=== PATIENT | female | born 1940 | race Caucasian/White ===

== ENCOUNTER 2018-12-20 10:39 | Emergency (ER) | payer MEDICARE, OTHER ==
[~2018-12-20] VITALS: Ht 165.1 cm; Wt 158.8 kg
[~2018-12-20 10:39] MED LIST: Augmentin 875-1 EACH PO; CLIN150 PO; METPRE4DP PO; SERT50 PO
[2018-12-20] MEDS ORDERED: XARELTO20 MG PO (11:04)
[2018-12-20 12:23] LABS: Source, Urine Voided
[2018-12-20 12:26] LABS: Bilirubin, Urine Neg (Neg); Blood, Urine Neg (Neg); Glucose Qualitative, Urine Neg (Neg); Ketones, Urine Neg (Neg); Leukocyte Esterase, Urine Neg (Neg); Nitrite, Urine Neg (Neg); Protein, Urine Neg (Neg); Urobilinogen, Urine NORM (Normal)
[2018-12-20 12:33] LABS: Appearance, Urine Clear (Clear); Color, Urine Yellow (P-Yellow)
[2018-12-20 12:47] LABS: BASOPHILS ABSOLUTE AUTO 0.03 K/mm3 (0.00-0.23); BASOPHILS PERCENT AUTO 0 % (0-2); EOSINOPHILS ABSOLUTE AUTO 0.06 K/mm3 (0.00-0.68); EOSINOPHILS PERCENT AUTO 1 % (0-6); Hematocrit 48.1 % (33.0-51.0); Hemoglobin 15.6 g/dL (11.5-16.0); IMMATURE GRAN ABSOLUTE AUTO 0.02 K/mm3 (0.00-0.10); IMMATURE GRAN PERCENT AUTO 0 % (0-1); LYMPHOCYTES ABSOLUTE AUTO 2.24 K/mm3 (0.84-5.20); LYMPHOCYTES PERCENT AUTO 27 % (21-46); MONOCYTES ABSOLUTE AUTO 0.63 K/mm3 (0.16-1.47); MONOCYTES PERCENT AUTO 8 % (4-13); Mean Corpuscular HGB 30.6 pg (26.0-34.0); Mean Corpuscular HGB Conc 32.4 g/dL (31.5-36.5); Mean Corpuscular Volume 95 fL (80-100); Mean Platelet Volume 10.5 fL (9.1-12.4); NEUTROPHILS PERCENT AUTO 64 % (41-73); Platelet Count 180 K/mm3 (150-400); RDW Coefficient Variation 12.7 % (11.7-14.2); RDW Standard Deviation 44.5 fL (35.1-46.3); Red Blood Cell Count 5.09 M/mm3 (3.80-5.20); White Blood Cell Count 8.18 K/mm3 (4.00-11.30)
[2018-12-20 12:56] LABS: Alanine Aminotransfer (ALT/SGP 22 U/L (12-78); Albumin, Blood 3.7 g/dL (3.4-5.0); Albumin/Globulin Ratio 0.9 (0.8-1.8); Alk Phos 84 U/L (50-136); Anion Gap 5 mmol/L (6-16); Aspartate Aminotrans (AST/SGOT 23 U/L (12-37); Bilirubin, Total 0.5 mg/dL (0.1-1.0); Blood Urea Nitrogen 11 mg/dL (8-24); Bun/Creatinine Ratio 16.8 (12.0-20.0); CO2, Blood 30 mmol/L (21-32); Calcium, Blood 9.2 mg/dL (8.5-10.1); Chloride, Blood 106 mmol/L (98-108); Creatinine, Blood 0.66 mg/dL (0.40-1.00); Globulin, Blood 3.9 g/dL (2.2-4.0); Glomerular Filtration Rate >60 (60-); Glucose, Blood 102 mg/dL (70-99); Potassium, Blood 4.1 mmol/L (3.5-5.5); Sodium, Blood 141 mmol/L (136-145); Total Protein, Blood 7.6 g/dL (6.4-8.2); Troponin I <0.015 ng/mL (0.000-0.040)
[2018-12-20] MEDS ORDERED: Hydrochloroth12.5 MG PO (15:05)
== END 2018-12-20 15:19 | disposition home or self-care (01) ==
LOC: ER 10:39
PROVIDERS: Emergency Medicine
DX: I10 Essential (primary) hypertension (principal); I48.91 Unspecified atrial fibrillation; Z87.891 Personal history of nicotine dependence; Z88.5 Allergy status to narcotic agent
CPT/HCPCS: 36415; 71046; 80053; 81003; 83880; 84443; 84484; 85025; 93005; 93010; 93306; 96361; 96374; 96375; 99284-25; J0360; J2060; J7030

== ENCOUNTER → 2020-05-21 | Outpatient (CLI) | payer MEDICARE, OTHER ==
[~2020-05-21] MED LIST changes: +ASPI81CH PO; +DICLOFENAC SOD100 G1 TOP; +FUROSEMIDE20 MG PO; +HYDROCODONE-AC1 EAC8 PO; +Hydrochloroth12.5 MG PO; +METOPROLOL SUCC25 MG PO; +MULTI-VITAMIN1 EAC2 PO; +ONDA4ODT MM; +Potassium Chlo20 ME1 PO; +XARELTO20 MG PO
== END ==
LOC: LAB 13:45 → LAB SHORT 13:45
DX: R30.0 Dysuria (principal); R31.0 Gross hematuria
CPT/HCPCS: 87086

== ENCOUNTER → 2021-04-02 | Outpatient (CLI) | payer MEDICARE, OTHER | END | disposition home or self-care (01) | LOC: LAB SHORT 16:47 → LAB 16:47 | DX: N30.00 Acute cystitis without hematuria (principal) | CPT/HCPCS: 87086 ==

== ENCOUNTER → 2021-04-08 | Outpatient (CLI) | payer MEDICARE, OTHER | END | disposition home or self-care (01) | LOC: LAB SHORT 11:00 | DX: R30.0 Dysuria (principal) | CPT/HCPCS: 87086 ==

== ENCOUNTER 2022-04-01 10:28 | Inpatient (IN) | payer MEDICARE, OTHER ==
[~2022-04-01] VITALS: Ht 165.1 cm; Wt 154.9 kg
[~2022-04-01 10:28] MED LIST changes: +FURO40 PO; -FUROSEMIDE20 MG PO
[2022-04-01 11:14] LABS: BASOPHILS ABSOLUTE AUTO 0.01 K/mm3 (0.00-0.23); BASOPHILS PERCENT AUTO 0 % (0-2); EOSINOPHILS ABSOLUTE AUTO 0.01 K/mm3 (0.00-0.68); EOSINOPHILS PERCENT AUTO 0 % (0-6); Hematocrit 43.2 % (33.0-51.0); IMMATURE GRAN ABSOLUTE AUTO 0.02 K/mm3 (0.00-0.10); IMMATURE GRAN PERCENT AUTO 0 % (0-1); LYMPHOCYTES ABSOLUTE AUTO 1.74 K/mm3 (0.84-5.20); LYMPHOCYTES PERCENT AUTO 25 % (21-46); MONOCYTES ABSOLUTE AUTO 1.19 K/mm3 (0.16-1.47); MONOCYTES PERCENT AUTO 17 % (4-13); Mean Corpuscular HGB 28.9 pg (26.0-34.0); Mean Corpuscular HGB Conc 32.4 g/dL (31.5-36.5); Mean Corpuscular Volume 89 fL (80-100); Mean Platelet Volume 9.4 fL (9.1-12.4); NEUTROPHILS ABSOLUTE AUTO 4.06 K/mm3 (1.96-9.15); NEUTROPHILS PERCENT AUTO 58 % (41-73); Platelet Count 171 K/mm3 (150-400); RDW Coefficient Variation 14.9 % (11.7-14.2); RDW Standard Deviation 49.5 fL (35.1-46.3); Red Blood Cell Count 4.84 M/mm3 (3.80-5.20); White Blood Cell Count 7.03 K/mm3 (4.00-11.30)
[2022-04-01 11:33] LABS: Albumin, Blood 2.8 g/dL (3.4-5.0); Albumin/Globulin Ratio 0.7 (0.8-1.8); Bilirubin, Total 0.6 mg/dL (0.1-1.0); Bun/Creatinine Ratio 20.2 (12.0-20.0); Calcium, Blood 8.6 mg/dL (8.5-10.1); Creatinine, Blood 0.69 mg/dL (0.40-1.00); Globulin, Blood 4.2 g/dL (2.2-4.0); Potassium, Blood 3.9 mmol/L (3.5-5.5)
[2022-04-01 12:21] LABS: Influenza B, PCR NEGATIVE (NEGATIVE); Resp Syncytial Virus, PCR NEGATIVE (NEGATIVE); SARS-Cov-2 (COVID-19) PCR, MMC NEGATIVE (NEGATIVE)
[2022-04-01 12:23] LABS: Influenza A, PCR POSITIVE (NEGATIVE)
[2022-04-02 05:57] LABS: PO2 Arterial 78.5 mmHg (80-100)
[2022-04-02 05:58] LABS: PCO2 Arterial 90.9 mmHg (35-45); pH Blood Arterial 7.21 (7.35-7.45)
[2022-04-02 06:11] LABS: Hematocrit 48.3 % (33.0-51.0); Hemoglobin 14.8 g/dL (11.5-16.0); Mean Corpuscular HGB Conc 30.6 g/dL (31.5-36.5); Mean Platelet Volume 9.7 fL (9.1-12.4); Platelet Count 165 K/mm3 (150-400); RDW Coefficient Variation 15.1 % (11.7-14.2); RDW Standard Deviation 53.1 fL (35.1-46.3); White Blood Cell Count 6.66 K/mm3 (4.00-11.30)
[2022-04-02 06:36] LABS: Calcium, Blood 9.2 mg/dL (8.5-10.1); Creatinine, Blood 0.67 mg/dL (0.40-1.00); Magnesium, Blood 2.5 mg/dL (1.6-2.4); Potassium, Blood 4.3 mmol/L (3.5-5.5)
--- NOTE | 2022-04-02 06:54 | NUR ---
FAMILY CALL RECEIVED CALL AT THE NURSE'S STATION FROM PT'S SON REGINALD. HE STATED THAT HE HAD MISSED A CALL BUT THERE WAS NO MESSAGE. PROVIDED UPDATE INCLUDING REASON FOR TRANSFER TO PCU AND PLAN OF TREATMENT AFTER RAPID RESPONSE WAS CALLED ON MEDICAL FLOOR. ANSWERED QUESTIONS AND EXPLAINED THAT CONDITION IS FRAGILE AT THIS TIME UNTIL RESPONSE TO TREATMENT IS KNOWN.
--- NOTE | 2022-04-02 07:03 | NUR ---
CALL FROM SPOUSE RECEIVED ADDITIONAL CALL AT NURSES' STATION WITH REQUEST FOR UPDATE. PT'S (VICKY) HAD MISSED A CALL. REQUESTED THAT HE BE CALLED ON HIS CELL PHONE FOR FUTURE UPDATES AT [phone]. PROVIDED UPDATE AND ANSWERED QUESTIONS R/T TREATMENT PLAN AND CONDITION.
[2022-04-02 07:12] LABS: Mean Corpuscular Volume 95 fL (80-100)
--- NOTE | 2022-04-02 07:32 | NUR ---
PATIENT TRANSFERED FROM MEDICAL UNIT TO PCU 15 FOLLOWING RAPID RESPONSE CALLED DUE TO ALTERED MENTAL STATUS. SHE ARRIVED TO THE ROOM AT APPROXIMATELY 05:55 THIS MORNING. RT SET UP BIPAP EMERGENTLY AND PATIENT WAS SETTLED. HEART RATE RANGES FROM HIGH 40S TO 80S AND RHYTHM IS ATRIAL FIBRILLATION, WHICH IS CHRONIC FOR THIS PATIENT. [facility] CARE PROVIDED PRIOR TO PLACEMENT OF PUREWICK DUE TO PATIENT RESPIRATORY STATUS AND ADMINISTRATION OF IV LASIX. SKIN BREAKDOWN SEEN AROUND PERINEUM, UNDER PANNUS AND IN BILAT GROIN. PATIENT WILL NEED MICONAZOLE POWDER, ADVISED ONCOMING RN OF THIS IN RN TO RN REPORT. PATIENT ORIENTED TO SELF AND PLACE AND THAT SHE IS IN THE HOSPITAL DUE TO WEAKNESS AND "LOW OXYGEN." BIPAP IS IN PLACE. 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 LIMB RESTRICTION NOTICE DISPLAYED. VENIPUNCTURE WAS DIFFICULT PER PHLEBLOTOMIST. PASSED ON TO WHEELAGE CLERK THAT PATIENT WOULD BENEFIT FROM A POWERGLIDE IF POSSIBLE. IV LASIX AND ORDERED ANTIBIOTICS ADMINISTERED. PATIENT IS RESTING COMFORTABLY IN BED WITH BIPAP IN PLACE.
--- NOTE | 2022-04-02 08:39 | NUR ---
CALL TO PROVIDER THIS RN CALLS DR TAYLOR, GIVEN UPDATE ON FREQUENT 2-2.3 SECOND PAUSES AND PT HR INTO 40'S AT TIMES. ORDER TO CONTINUE TO MONITOR AND HOLD ORDERED METOPROLOL. NOTIFIED OF ABG BEING DRAWN PER RT PROTOCOL AT THIS TIME. CONTINUES ON BIPAP 18/8 50% O2. ORDER TO PERFORM CBG AT THIS TIME SINCE PT IS ON BIPAP AND LETHARGIC AND NOT TAKING IN PO.
[2022-04-02 08:53] LABS: PCO2 Arterial 80.3 mmHg (35-45); PO2 Arterial 76.9 mmHg (80-100); pH Blood Arterial 7.27 (7.35-7.45)
[2022-04-02 10:45] LABS: PCO2 Arterial 71.2 mmHg (35-45); PO2 Arterial 81.5 mmHg (80-100); pH Blood Arterial 7.32 (7.35-7.45)
[2022-04-02 12:01] LABS: Source, Urine Foley catheter
[2022-04-02 12:09] LABS: Bilirubin, Urine Neg (Neg); Blood, Urine Neg (Neg); Glucose Qualitative, Urine Neg (Neg); Ketones, Urine Neg (Neg); Leukocyte Esterase, Urine Neg (Neg); Nitrite, Urine Neg (Neg); Protein, Urine 1+ (Neg); Urobilinogen, Urine NORM (Normal)
[2022-04-02 12:18] LABS: Appearance, Urine Hazy (Clear); Color, Urine Yellow (P-Yellow)
[2022-04-02 12:19] LABS: Bacteria Few /hpf; Granular Casts 0-2 /lpf (0); Red Blood Cells, Urine 0-2 /hpf (0-2); Squamous Epithelial Cells Few /hpf (Few)
--- NOTE | 2022-04-02 14:56 | NUR ---
PROVIDER UPDATE DR TAYLOR CALLS FOR UPDATE ON PT, THIS RN UPDATES HER ON PT AOX4 WITH FAMILY AT BEDSIDE WHILE SITTING UP AND AWAKE ON BIPAP. UPDATED ON PT SATS OCCASIONALLY DROPPING WITH IRREGUAR BREATHING PATTERN BUT SATS NOT MAINTAINING LOW. PATEL RT AWARE. HR IMPROVED FROM THIS AM, NO SIGNIFICANT OCCURENCE OF PAUSES THIS AFTERNOON. NOTIFIED OF PLAN FOR REPEAT BLOOD GAS AT AROUND 1600.
[2022-04-02 16:56] LABS: Base Excess Venous 10.7 mmol/L; Bicarbonate Venous 31.8 mmol/L (24.0-30.0); PCO2 Venous 67.7 mmHg (38-42); pH Blood Venous 7.34 (7.34-7.37)
--- NOTE | 2022-04-02 20:17 | NUR ---
SHIFT SUMMARY PT AOX4 THIS EVENING WITH FAMILY AT BEDSIDE, MAINTAINS AFIB 50'S-60'S WITH RARE 2 SECOND PAUSES NOTED BY TELE. PT MASK SWITCHED OUT TO SMALL SIZE AND GEL IN PLACE D/T FREQUENT LEAKS AND SOME BREAKDOWN TO BRIDGE OF NOSE FROM BIPAP TIGHT TO FACE. LS DIMINISHED T/O WITH SOME WHEEZING SATS MAINTAINED 95-98% ON BIPAP AT 24/10 RR22 AND O2 40-50%. PT TURNED FREQUENTLY BY X2 STAFF, ASSISTS WITH TURNS, PILLOWS IN PLACE TO AID IN REPOSITIONING. ORAL CARE PERFORMED SEVERAL TIMES T/O SHIFT. PT TOLERATED WELL AND STATED IMPROVEMENT IN COMFORT FOLLOWING ORAL CARE THROUGH MASK. WATTERS DRAINING DARK YELLOW URINE. NO BM THIS SHIFT, PT HAS BEEN NPO D/T BIPAP. SWITCHED TO LOVENOX AND DC XARELTO AT THIS TIME PER DR TAYLOR ORDER D/T NPO.
[2022-04-03 04:29] LABS: PO2 Venous 45.7 mmHg (38-42)
[2022-04-03 04:30] LABS: Base Excess Venous 12.6 mmol/L; Bicarbonate Venous 33.7 mmol/L (24.0-30.0); PCO2 Venous 56.7 mmHg (38-42); pH Blood Venous 7.42 (7.34-7.37)
[2022-04-03 04:41] LABS: BASOPHILS ABSOLUTE AUTO 0.01 K/mm3 (0.00-0.23); BASOPHILS PERCENT AUTO 0 % (0-2); EOSINOPHILS PERCENT AUTO 0 % (0-6); Hematocrit 43.2 % (33.0-51.0); Hemoglobin 13.6 g/dL (11.5-16.0); IMMATURE GRAN ABSOLUTE AUTO 0.02 K/mm3 (0.00-0.10); IMMATURE GRAN PERCENT AUTO 1 % (0-1); LYMPHOCYTES ABSOLUTE AUTO 1.09 K/mm3 (0.84-5.20); LYMPHOCYTES PERCENT AUTO 29 % (21-46); MONOCYTES ABSOLUTE AUTO 0.22 K/mm3 (0.16-1.47); MONOCYTES PERCENT AUTO 6 % (4-13); Mean Corpuscular HGB 28.6 pg (26.0-34.0); Mean Corpuscular HGB Conc 31.5 g/dL (31.5-36.5); Mean Corpuscular Volume 91 fL (80-100); Mean Platelet Volume 10.2 fL (9.1-12.4); NEUTROPHILS ABSOLUTE AUTO 2.41 K/mm3 (1.96-9.15); NEUTROPHILS PERCENT AUTO 64 % (41-73); Platelet Count 185 K/mm3 (150-400); RDW Coefficient Variation 14.8 % (11.7-14.2); RDW Standard Deviation 49.5 fL (35.1-46.3); Red Blood Cell Count 4.76 M/mm3 (3.80-5.20); White Blood Cell Count 3.75 K/mm3 (4.00-11.30)
[2022-04-03 04:58] LABS: Bun/Creatinine Ratio 29.2 (12.0-20.0); Calcium, Blood 9.2 mg/dL (8.5-10.1); Creatinine, Blood 0.69 mg/dL (0.40-1.00); Potassium, Blood 4.2 mmol/L (3.5-5.5)
--- NOTE | 2022-04-03 07:19 | NUR ---
NO ACUTE EVENTS OVERNIGHT LAST NIGHT, PATIENT WAS ON BIPAP THROUGH MOST OF THE NIGHT UNTIL APPROXIMATELY 05:00 WHEN SHE WAS GIVEN A BREAK FROM THE BIPAP AND PERSONAL CARES WERE PROVIDED. IMPROVEMENTS NOTED IN VBG (SEE RESULTS IN EMR). PATIENT ALERT & ORIENTED, PARTICIPATING IN CARES, AND TALKATIVE WITH STAFF. PATIENT REPORTS FEELING BETTER BUT DOES NOT RECALL MUCH OF THE PREVIOUS DAY. PATIENT IS RESTING IN BED ON 3 LPM PER NASAL CANNULA, WITH SpO2 RANGING FROM 94 - 98%. NO COMPLAINTS OF SHORTNESS OF BREATH. NO LABORED BREATHING OBSERVED. WILL CONTINUE TO MONITOR
--- NOTE | 2022-04-03 17:53 | NUR ---
SHIFT SUMMARY; ASSUMED CARE AT 0700. A/A/OX4. 3L O2 VIA NC, TOLERATING WELL. BED BATH TODAY AND LINEN CHANGE. WATTERS IN PLACE DRAINING YELLOW URINE TO GRAVITY. YEAST CREAM PER EMAR ON SKIN FOLDS. BLE EDEMA 2+, VSS, FAMILY AT BEDSIDE DURING SHIFT. PT VISITS WITH FAMILY AND TALKS ON PHONE DURING SHIFT. NO APPARENT DISTRESS, WILL CONTINUE TO MONITOR AND TREAT UNTIL CHANGE OF SHIFT.
--- NOTE | 2022-04-04 05:04 | NUR ---
SHIFT SUMMARY PT A&Ox4, CALLS AND COMMUNICATES NEEDS APPROPRIATELY. VSS. BP STABLE, AFIB 60-100's WITH AWAKE, 40-50's WITH OCCATIONAL PAUSE OF APPROXIAMTELY 2sec WHILE ASLEEP. PT ASYMPTOMATIC, DENIES CP/PRESSURE/LIGHTHEADEDNESS. PT WORE BiPAP THROUGHOUT THE NIGHT WHILE ASLEEP AND 3L VIA NC WHILE AWAKE, SpO2> 92%, DENIES SOB. WATTERS CATHETER IN PLAC, PATENT AND DRAINING TO GRAVITY. PT HAS SLIGHT INDENT AND RED SHAQUILLE ON BRIDGE OF NOSE FROM BiPAP MASK, GEL GECKO PAD APPLIED. REDNESS AND INDENT LESSENED AFTER GEL GECKO PAD WAS PLACE AND CONTINUES TO IMPROVE NOW THAT PT IS AWAKE AND NOT WEARING BiPAP. NO ACUTE EVENTS THIS SHIFT, WILL REPORT TO ONCOMING RN.
--- NOTE | 2022-04-04 11:12 | NUR ---
Upon receiving a referral for spiritual care, I visit pt. Patient is lying in bed and resting, but easily awakens to the sound of her name. She immediately tells me about her medical complications, her Orthodoxy telly and her spouse, residing in the ER awaiting admittance for a hospital room. Pt shares about the stressors that are weighing on her and how her telly is the strength and inspiration that brings her through challenging situations. Her son Mitchell enters the room, I provide prayer and then allow them time to visit. Pt responds well to the therapeutic listening, recitation of scripture and prayer and shows signs of being encouraged in her telly. I will continue to remain available to patient and family.
--- NOTE | 2022-04-04 18:42 | NUR ---
END OF SHIFT: ASSUMPTION OF CARE WAS ROUGHLY AT 1300, PATIENT HAS BEEN STABLE DENIES CHEST PAIN OR PRESSURE, PT/OT HAS BEEN WORKED WITH PATIENT NEW ORDERS OF MIRALAX AND PT/OT EVAL. PATIENT TOLERATED WELL BUT HR DID GO TO THE 140'S WITH THE EXERTION OF PT. PATIENT ASYMPTOMATIC. PATIENT DENIES CHEST PAIN SOB, OR PRESSURE AHSB BEEN 2-3L VIA NC AND SPO2 >94% PATIENT ON AVAP SETTINGS AT HS. PATIENT HAS BEEN AWAKE ALL SHIFT. FAMILY AT BEDSIDE. NO SIGN OF CARDIAC OR RESPIRATORY DISTRESS AT THIS TIME WILL CONTINUE TO MONITOR UNTIL SHIFT CHANGE.
--- NOTE | 2022-04-05 04:28 | NUR ---
SHIFT SUMMARY PT A&Ox4, CALLS AND COMMUNICATES NEEDS APPROPRIATELY. VSS. BP STABLE, AFIB 60-100's WITH AWAKE, 50's WHILE ASLEEP. DENIES CP/PRESSURE/LIGHTHEADEDNESS. PT WITH NO EPISODES OF PAUSES THIS SHIFT. PT WORE BiPAP THROUGHOUT THE NIGHT WHILE ASLEEP AND 3L VIA NC WHILE AWAKE, SpO2> 92%, DENIES SOB. WATTERS CATHETER IN PLACE, PATENT AND DRAINING TO GRAVITY. PT REMAINED MEDICAL WITH TELE STATUS. NO ACUTE EVENTS THIS SHIFT, WILL REPORT TO ONCOMING RN.
--- NOTE | 2022-04-05 09:00 | NUR ---
INITIAL ASSESSMENT: Patient is alert and oriented, she is just walking back from the bathroom, the PCT helped her with a bed bath this AM. She denies pain aside from a sore throat-pt states is due to coughing. HR irreg, A-Fib in the 70s. LS DIM T/O, biox WNL on 2l VIA NC. BT+. PPP. VSS. Patient is sitting on the edge of the bed finishing breakfast, takes AM pills fine whole with water. Patient denies other needs at this time. Call light in reach.
[2022-04-05] MEDS ORDERED: NYSTATIN15 GM TOP (12:18)
[2022-04-05] MEDS ORDERED: VISBIOME 112.51 EACH PO (12:19)
[2022-04-05] MEDS ORDERED: MIRALAX11910 PO (12:19)
[2022-04-05] MEDS ORDERED: ALBU90OI INH (12:20)
[2022-04-05] MEDS ORDERED: CEFD300 PO (12:20)
[2022-04-05] MEDS ORDERED: PRED20 PO (12:21)
--- NOTE | 2022-04-05 16:18 | NUR ---
Update: hide and skin fleshing machine operator and care management have been working on patients discharge. She needs a trilogy and we are working on getting her qualified. VSS. Patient has been resting comfortably all day. She denies other needs at this time. Call was placed to family to notify them of possible discharge. Patient is OOB to the chair. Call light in reach.
--- NOTE | 2022-04-05 18:15 | NUR ---
DISCHARGE SUMMARY: The trilogy, oxygen, and walker were delivered. Pt and son verbalize understanding of discharge instructions. IV DC'd cath intact. Pt to home with son via WC.
== END 2022-04-05 18:52 | disposition home health service (06) | DRG 193 ==
LOC: ER 10:28 → ERHOLD 15:17 → PCU 22:00 → MEDS 22:12 → PCU 04-02 05:48
PROVIDERS: Internal Medicine; Nurse Practitioner Acute Care; Student in an Organized Health Care Education/Training Program; ADMIT Hospitalist
PROC: 5A09357 Assistance with Respiratory Ventilation, Less than 24 Consecutive Hours, Continuous Positive Airway Pressure (ICD-10-PCS; principal; 2022-04-02)
DX: J10.00 Influenza due to other identified influenza virus with unspecified type of pneumonia (principal); G92.8 Other toxic encephalopathy; J96.02 Acute respiratory failure with hypercapnia; J96.01 Acute respiratory failure with hypoxia; I48.19 Other persistent atrial fibrillation; I50.32 Chronic diastolic (congestive) heart failure; Z68.42 Body mass index [BMI] 45.0-49.9, adult; E66.01 Morbid (severe) obesity due to excess calories; I11.0 Hypertensive heart disease with heart failure; F40.240 Claustrophobia; Z20.822 Contact with and (suspected) exposure to COVID-19; F32.A Depression, unspecified; Z88.5 Allergy status to narcotic agent; Z79.01 Long term (current) use of anticoagulants; Z79.899 Other long term (current) drug therapy; Z79.82 Long term (current) use of aspirin; Z98.890 Other specified postprocedural states; Z90.710 Acquired absence of both cervix and uterus; Z85.3 Personal history of malignant neoplasm of breast; Z87.891 Personal history of nicotine dependence; Z85.820 Personal history of malignant melanoma of skin
CPT/HCPCS: 0241U; 36415; 36600; 71045; 71046; 80048; 80053; 81001; 82803; 82947; 83735; 83880; 84145; 84484; 85025; 85027; 93005; 93010; 94640; 94660; 94664; 94761; 94762; 96365; 96366; 96375; 96376; 97116; 97162; 97165; 97530; 99285-25; A9270; G0378; J0456; J0696; J1650; J1940; J2930; J7050

== ENCOUNTER → 2022-05-04 | Outpatient (CLI) | payer MEDICARE, OTHER ==
[~2022-05-04] MED LIST changes: +ALBU90OI INH; +CEFD300 PO; +MIRALAX11910 PO; +NYSTATIN15 GM TOP; +PRED20 PO; +VISBIOME 112.51 EACH PO
== END | disposition home or self-care (01) ==
LOC: LAB SHORT 12:06
DX: R30.0 Dysuria (principal); R31.9 Hematuria, unspecified
CPT/HCPCS: 87086

== ENCOUNTER → 2023-05-31 | Outpatient (CLI) | payer MEDICARE, OTHER | END | disposition home or self-care (01) | LOC: LAB 13:26 → LAB SHORT 13:26 | DX: N39.0 Urinary tract infection, site not specified (principal) | CPT/HCPCS: 87086 ==

== ENCOUNTER 2023-08-29 22:14 | Emergency (ER) | payer MEDICARE, OTHER ==
[~2023-08-29] VITALS: Ht 162.6 cm; Wt 136.1 kg
[2023-08-29 22:47] VITALS: BP 141/90
== END 2023-08-30 03:28 | disposition home or self-care (01) ==
LOC: ER 22:14
DX: L76.21 Postprocedural hemorrhage of skin and subcutaneous tissue following a dermatologic procedure (principal); Z88.5 Allergy status to narcotic agent; Z88.8 Allergy status to other drugs, medicaments and biological substances; Z79.899 Other long term (current) drug therapy; Z79.82 Long term (current) use of aspirin; I48.91 Unspecified atrial fibrillation; Z85.3 Personal history of malignant neoplasm of breast; Z87.891 Personal history of nicotine dependence
CPT/HCPCS: 99283

== ENCOUNTER → 2024-05-31 | Outpatient (CLI) | payer MEDICARE, OTHER | END | disposition home or self-care (01) | LOC: LAB 17:58 → LAB SHORT 17:58 | DX: N39.0 Urinary tract infection, site not specified (principal) | CPT/HCPCS: 87086 ==

== ENCOUNTER 2024-07-02 16:08 | Emergency (ER) | payer MEDICARE, OTHER ==
[~2024-07-02] VITALS: Ht 162.6 cm; Wt 86.2 kg
[2024-07-02] MEDS ORDERED: Diphth,Pertuss(Acell),Tet Vac 0.5 ML VIAL IM ONE ×2 (16:20→16:25)
[2024-07-02] MEDS ORDERED: Tranexamic Acid 1000 MG/10 ML 10ML Vial (SDV) TOP ONE (16:45)
== END 2024-07-02 17:51 | disposition home or self-care (01) ==
LOC: ER 16:08
DX: S61.012A Laceration without foreign body of left thumb without damage to nail, initial encounter (principal); W26.0XXA Contact with knife, initial encounter; Z87.891 Personal history of nicotine dependence
CPT/HCPCS: 90471; 90715; 99282-25

== ENCOUNTER → 2024-11-05 | Outpatient (CLI) | payer MEDICARE, OTHER ==
[~2024-11-05] MED LIST changes: +ANASTROZOLE1 M7 PO; +KISQALI1 EAC4 PO
[2024-11-06 09:46] LABS: Stool Occult Blood Guaiac 1 Neg (Neg)
== END | disposition home or self-care (01) ==
LOC: LAB 12:44 → LAB SHORT 12:44
PROVIDERS: Family Medicine
DX: Z12.11 Encounter for screening for malignant neoplasm of colon (principal)
CPT/HCPCS: 82270